=== PATIENT | female | born 1965 | race Caucasian/White ===

== ENCOUNTER 2020-04-15 08:30 | Outpatient (CLI) | payer OTHER, SELFPAY | END 2020-04-15 23:59 | disposition home or self-care (01) | LOC: MLB 08:30 → EDUNIT# 04-17 07:30 → EDSTATUS 04-17 07:30 | PROVIDERS: ATTEND Internal Medicine Gastroenterology | DX: Z01.812 Encounter for preprocedural laboratory examination (principal); Z20.828 Contact with and (suspected) exposure to other viral communicable diseases | CPT/HCPCS: U0003 ==